=== PATIENT | male | born 1975 | race Hispanic/Latino ===

== ENCOUNTER 2018-05-03 18:20 | Emergency (ER) | payer OTHER, SELFPAY ==
[~2018-05-03 18:20] MED LIST: ISOVUE-370 76%-LOCM 1 ML ONE
[2018-05-03 18:49] LABS: #Basophils 0.1 thou/uL (0.0-0.2); #Eosinphils 0.1 thou/uL (0.0-0.7); #Lymphocytes 1.8 thou/uL (1.20-3.40); #Monocytes 0.7 thou/uL (0.11-0.59); #Neutrophils 13.5 thou/uL (1.40-6.50); %Basophils 0.3 % (0.0-1.0); %Eosinophils 0.9 % (0.0-10.0); %Lymphocytes 10.9 % (21.0-51.0); %Monocytes 4.2 % (0.0-10.0); %Neutrophils 83.6 % (42.0-75.0); Hemoglobin 14.6 g/dL (14.0-18.0); Mean Corpuscular HGB CONC 35.1 g/dL (32.0-36.0); Mean Corpuscular Hemoglobin 31.2 pg (27.0-31.0); Mean Platelet Volume 7.1 fL (7.4-10.4); Platelet Count 264 thou/uL (130-400); RBC Distribution Width 11.3 % (11.5-14.5); Red Blood Cell (RBC) Count 4.66 mill/uL (4.70-6.10); White Blood Cell (WBC) Count 16.1 thou/uL (4.8-10.8)
[2018-05-03] MEDS ORDERED: Ketorolac Tromethamine 30 MG/ML VIAL ONE (19:02)
[2018-05-03] MEDS ORDERED: Ondansetron ODT 8 MG TAB ONE (19:02)
[2018-05-03 19:09] LABS: ALT (SGPT) 21 U/L (8-55); AST (SGOT) 19 U/L (5-34); Albumin 4.3 g/dL (3.5-5.0); Alkaline Phosphatase 62 U/L (40-150); Anion Gap 13 mmol/L (10-20); BUN (Urea Nitrogen) 13 mg/dL (8.9-20.6); Bilirubin, Total 0.4 mg/dL (0.2-1.2); Calc. Creatinine Clearance 0 mL/min (70-130); Calcium 8.9 mg/dL (7.8-10.44); Carbon Dioxide 19 mmol/L (22-29); Chloride 108 mmol/L (98-107); Estimated GFR-MDRD Greater than 90; Globulin 2.9 g/dL (2.4-3.5); Glucose 106 mg/dL (70-105); Lipase 24 U/L (8-78); Potassium 4.1 mmol/L (3.5-5.1); Protein, Total 7.2 g/dL (6.0-8.3); Sodium 136 mmol/L (136-145)
--- NOTE | 2018-05-03 20:00 | CT ---
CT ABDOMEN AND PELVIS WITH IV CONTRAST: 05/03/18 Multiple axial tomograms obtained through the abdomen and pelvis with IV enhancement. INDICATIONS: Abdominal pain. Right flank pain. Lung bases are clear. Liver, spleen, and pancreas unremarkable. Stomach and duodenum unremarkable. Adrenal glands normal. There is a 6 mm calculus in the proximal right ureter producing only mild fullness of the right upper collecting structures. No other urinary calculus. The kidneys are otherwise unremarkable. Bowel loops unremarkable. Appendix appears normal. IMPRESSION: A 6 mm calculus in the proximal right ureter producing mild obstructive change. POS: [facility]
[2018-05-03 20:19] LABS: Bilirubin Negative (Negative); Blood, Urine Trace (Negative); Clarity CLEAR (Clear); Glucose, Urine (Dipstick) Negative (Negative); Leukocyte Negative (Negative); Nitrite Negative (Negative); Protein, Urine (Dipstick) Negative (Neg-Trace); Urobilinogen 0.2 mg/dL (0.2-1.0); pH, Urine 5.5 (5.0-9.0)
[2018-05-03 20:23] LABS: Bacteria/HPF None Seen HPF (None Seen); Hyaline Casts/LPF 0-3 HYALINE CAST LPF (0-3 Hyaline); Squamous Epithelial 0-3 HPF (0-3); WBC/HPF 0-3 HPF (0-3)
[2018-05-03 20:29] LABS: Specific Gravity, Urine 1.059 (1.002-1.036)
== END 2018-05-03 21:00 | disposition home or self-care (01) ==
LOC: ERS 18:20
DX: N20.2 Calculus of kidney with calculus of ureter (principal)
CPT/HCPCS: 36415; 74177; 80053; 81003; 81015; 83690; 85025; 87086; 96361; 96374; 96375; J1885; J2270

== ENCOUNTER 2018-12-28 12:38 | Outpatient (CLI) | payer OTHER ==
--- NOTE | 2018-12-28 14:41 | RAD ---
LEFT HIP 2 VIEWS: HISTORY: Hip pain. FINDINGS: There are mild to moderate degenerative changes of the hip with spurring from the femoral head and ac etabulum. No fracture or acute abnormality. IMPRESSION: Mild to moderate degenerative changes left hip. POS: [facility]
== END 2018-12-28 12:39 | disposition home or self-care (01) ==
LOC: BICRAD 12:38
PROVIDERS: ATTEND Family Medicine
DX: M25.552 Pain in left hip (principal); M16.12 Unilateral primary osteoarthritis, left hip

== ENCOUNTER 2020-12-18 13:41 | Outpatient (CLI) | payer OTHER ==
--- NOTE | 2020-12-18 14:35 | RAD ---
CERVICAL SPINE FOUR VIEW: 12/18/20 HISTORY: Radicular pain in left arm. COMPARISON: None. FINDINGS: The visualized upper ribs are intact. No acute fracture or malalignment. Mild narrowing of the bilate ral C1-2 articulations. Odontoid process is intact as well as the mandible. Moderate C5-6 and C6-7 degenerative disc space height loss. A small disc osteophyte complex. A 1-2 mm retrolisthesis. IMPRESSION: Mild-moderate lower cervical spondylosis. No acute osseous abnormality. POS: [facility]
== END 2020-12-18 13:42 | disposition home or self-care (01) ==
LOC: BICRAD 13:41
PROVIDERS: ATTEND Family Medicine
DX: M79.2 Neuralgia and neuritis, unspecified (principal); M47.812 Spondylosis without myelopathy or radiculopathy, cervical region
CPT/HCPCS: 72040